=== PATIENT | female | born 1970 | race Hispanic/Latino ===

== ENCOUNTER 2024-02-22 18:30 | Emergency (ER) | payer SELFPAY ==
[~2024-02-22] VITALS: Ht 160 cm; Wt 64.9 kg
[2024-02-22 19:21] VITALS: PULSE 87; RESP 18; TEMP 98.2; O2SAT 99
[2024-02-22] MEDS ORDERED: Morphine 4mg INJECTION 4 MG/ML INJ ONE (19:30)
[2024-02-22] MEDS ORDERED: AMOXICILLIN/CLAVULANATE K 875 MG TAB ONE (19:30)
[2024-02-22] MEDS: TETANUS/DIPHTHERIA TOX ADULT 0.5 ML SYR IM ONE (19:48)
[2024-02-22] MEDS: ONDANSETRON HCL 4 MG ORAL DISINTEGRATING TAB PO ONE (19:49)
[2024-02-22] MEDS ORDERED: AMOX TR-K CLV1 EAC2 PO (19:49)
[2024-02-22] MEDS ORDERED: ONDANSETRON ODT4 MG SL (19:49)
[2024-02-22] MEDS ORDERED: HYDROCODON-ACE1 EA12 PO (19:49)
[2024-02-22] MEDS: BACITRACIN ZINC 0.9GM TP ONE (20:05)
[2024-02-22] MEDS: AMOXICILLIN/CLAVULANATE K 875 MG TAB PO STA (20:34)
[2024-02-22] MEDS: Morphine 4mg INJECTION 4 MG/ML INJ IM ONE (20:35)
== END 2024-02-22 20:35 | disposition home or self-care (01) ==
LOC: ER 18:54
DX: S81.851A Open bite, right lower leg, initial encounter (principal); W54.0XXA Bitten by dog, initial encounter; Y93.01 Activity, walking, marching and hiking; Y92.89 Other specified places as the place of occurrence of the external cause
CPT/HCPCS: 90471; 90714; 99283; J2270; Q0162